=== PATIENT | female | born 1960 ===

== ENCOUNTER → 2023-04-04 | Outpatient (CLI) | payer BC ==
[~2023-04-04] VITALS: Ht 182.9 cm; Wt 78.9 kg
[~2023-04-04] MED LIST: ADENOSINE 66 MG in GIVE UN-DILUTED 0 ML IV ONE; ADENOSINE 90 MG/30 ML INJ IV ONE
== END | disposition home or self-care (01) ==
LOC: Rad HDHVI 09:52
PROVIDERS: ATTEND Internal Medicine Cardiovascular Disease
DX: Z01.810 Encounter for preprocedural cardiovascular examination (principal); Z82.49 Family history of ischemic heart disease and other diseases of the circulatory system
CPT/HCPCS: 78452; 93005; 96374; 96375; A9500; J0153

== ENCOUNTER → 2024-05-21 | Outpatient (CLI) | payer BC | END | disposition home or self-care (01) | LOC: Rad HDHVI 08:01 | PROVIDERS: ATTEND Internal Medicine Cardiovascular Disease | DX: Z01.818 Encounter for other preprocedural examination (principal) | CPT/HCPCS: 93306 ==

== ENCOUNTER → 2024-05-24 | Outpatient (CLI) | payer BC ==
[~2024-05-24] VITALS: Ht 181.6 cm; Wt 72.6 kg
[~2024-05-24] MED LIST changes: +ADENOSINE 61 MG in GIVE UN-DILUTED 0 ML IV ONE; -ADENOSINE 66 MG in GIVE UN-DILUTED 0 ML IV ONE
== END | disposition home or self-care (01) ==
LOC: Rad HDHVI 14:26
PROVIDERS: ATTEND Internal Medicine Cardiovascular Disease
DX: Z01.810 Encounter for preprocedural cardiovascular examination (principal); I10 Essential (primary) hypertension; R00.1 Bradycardia, unspecified; Z82.49 Family history of ischemic heart disease and other diseases of the circulatory system
CPT/HCPCS: 78452; 93005; 96374; 96375; A9500; J0153